=== PATIENT | male | born 1995 | race Caucasian/White ===

== ENCOUNTER 2017-05-26 15:42 | Emergency (ER) | payer SELFPAY | END 2017-05-26 19:09 | disposition left against medical advice (07) | LOC: ER 17:37 | DX: M79.643 Pain in unspecified hand (principal); Z53.21 Procedure and treatment not carried out due to patient leaving prior to being seen by health care provider ==

== ENCOUNTER 2020-11-27 15:47 | Emergency (ER) | payer SELFPAY ==
[~2020-11-27] VITALS: Ht 177.8 cm; Wt 61.0 kg
[2020-11-27] MEDS ORDERED: KETOROLAC 30MG/ML VIAL IV STA (16:04)
[2020-11-27] MEDS ORDERED: DIPHENHYDRAMINE 50MG/ML VIAL IV ONE (16:15)
[2020-11-27] MEDS ORDERED: SODIUM CHLORIDE 0.9% 1,000 ML IV ONE (16:15)
[2020-11-27] MEDS ORDERED: METOCLOPRAMIDE HCL 10MG/2ML VIAL IV ONE (16:15)
[2020-11-27] MEDS ORDERED: IBUP-2028 MT (19:00)
[2020-11-27 19:15] VITALS: BP 105/56
== END 2020-11-27 19:26 | disposition home or self-care (01) ==
LOC: ER 15:47
DX: R51.9 Headache, unspecified (principal)
CPT/HCPCS: 96361; 96374; 96375; 99284; J1200; J1885; J2765; J7030; Z7610